=== PATIENT | female | born 1995 | race Caucasian/White ===

== ENCOUNTER 2020-07-16 17:42 | Emergency (ER) | payer OTHER ==
[~2020-07-16] VITALS: Ht 167.6 cm; Wt 59.0 kg
--- NOTE | 2020-07-16 17:52 | NUR ---
Patient discharged to home in stable condition. Written and verbal after care instructions given. Patient verbalizes understanding of instructions. Stressed follow up or return to ER for worsening s/s.
== END 2020-07-16 17:57 | disposition home or self-care (01) ==
LOC: ER 17:42
DX: J06.9 Acute upper respiratory infection, unspecified (principal)
CPT/HCPCS: A4663